=== PATIENT | male | born 1990 | race Caucasian/White ===

== ENCOUNTER 2019-01-28 20:34 | Emergency (ER) | payer SELFPAY ==
[2019-01-28 20:49] VITALS: BP 114/60
[2019-01-28] MEDS ORDERED: Lidocaine 1%* 5 ML VIAL INJ ONE (21:13)
--- NOTE | 2019-01-28 21:25 | UC ---
Skin Complaint HPI - HPI Summary HPI Summary: 28-year-old male comes to clinic with a chief complaint of right left upper lip laceration. Patient was skiing and he accidentally went into a [place] and cut his left upper lip. It bled quite a bit. Bleeding stopped with direct pressure. Patient reports he recently had a tetanus shot. Denies any other injuries. - History of Current Complaint Chief Complaint: UCRespiratory Time Seen by Provider: 01/28/19 21:11 Stated Complaint: LACERATION LIP Pain Intensity: 4 - Allergy/Home Medications Allergies/Adverse Reactions: Allergies Allergy/AdvReac Type Severity Reaction Status Date / Time No Known Allergies Allergy Verified 01/28/19 20:46 Home Medications: Home Medications NK [No Home Medications Reported] 01/28/19 [History Confirmed 01/28/19] PMH/Surg Hx/FS Hx/Imm Hx Previously Healthy: Yes - Surgical History Surgical History: None - Family History Known Family History: Positive: Non-Contributory - Social History Alcohol Use: Occasionally Substance Use Type: None Smoking Status (MU): Light Every Day Tobacco Smoker Type: Cigarettes Amount Used/How Often: 1/2 PPD Length of Time of Smoking/Using Tobacco: 4 YEARS Review of Systems All Other Systems Reviewed And Are Negative: Yes Constitutional: Positive: Negative Skin: Positive: Other - see hpi Eyes: Positive: Negative ENT: Positive: Negative Respiratory: Positive: Negative Cardiovascular: Positive: Negative Gastrointestinal: Positive: Negative Motor: Positive: Negative Neurovascular: Positive: Negative Musculoskeletal: Positive: Negative Neurological: Positive: Negative Psychological: Positive: Negative Is Patient Immunocompromised?: No Physical Exam Triage Information Reviewed: Yes Appearance: Well-Appearing, No Pain Distress, Well-Nourished Vital Signs: Initial Vital Signs Temp 97.3 F 01/28/19 20:46 Pulse 80 01/28/19 20:46 Resp 15 01/28/19 20:46 BP 114/60 01/28/19 20:46 Pulse Ox 99 01/28/19 20:46 Vital Signs Reviewed: Yes Eye Exam: Normal Eyes: Positive: Conjunctiva Clear Neck exam: Normal Neck: Positive: Supple Respiratory: Positive: No respiratory distress Musculoskeletal Exam: Normal Musculoskeletal: Positive: Strength Intact, ROM Intact Neurological Exam: Normal Neurological: Positive: Alert, Muscle Tone Normal Psychological Exam: Normal Psychological: Positive: Age Appropriate Behavior Skin: Positive: Other - On the left upper lip there is a subcutaneous laceration is 8 mm in length. No active bleeding. The vermilion border is not involved. I do not see any foreign bodies. Laceration Repair - Laceration Repair 1 Description: Linear Laceration Size After Repair: Length (cm) - 0.8cm, Depth (mm) - sc Modified For Repair: Yes Type Injection: Local Anesthesia Used: 1.0% Lido Cleansing Completed Via Routine Prep: Yes Irrigation With Pressure Irrigation Device: No Closure Material: Sutures Closure Method: Single Layer - #3 sutures Suture Of: Skin Suture Type: Prolene - 6-0 Course/Dx - Diagnoses Provider Diagnosis: Laceration of lip Discharge - Sign-Out/Discharge Documenting (check all that apply): Patient Departure All imaging exams completed and their final reports reviewed: No Studies - Discharge Plan Condition: Stable Disposition: HOME Patient Education Materials: Facial Laceration (ED) Ref[place]: [facility] [Outside] Additional Instructions: FOLLOW UP WITH YOUR DOCTOR. SUTURES OUT IN 5-7 DAYS. GET RECHECKED FOR ANY WORSENING OF YOUR CONDITION; PAIN, SIGNS OF INFECTION OR QUESTIONS OR CONCERNS. - Billing Disposition and Condition Condition: STABLE Disposition: Home
== END 2019-01-28 21:51 | disposition home or self-care (01) ==
LOC: UCCORT 20:34
DX: S01.511A Laceration without foreign body of lip, initial encounter (principal); F17.210 Nicotine dependence, cigarettes, uncomplicated; W26.8XXA Contact with other sharp object(s), not elsewhere classified, initial encounter; Y93.21 Activity, ice skating; Y92.9 Unspecified place or not applicable
CPT/HCPCS: 12011; 99201; G0463